=== PATIENT | male | born 1995 | race African-American/Black ===

== ENCOUNTER 2017-05-08 07:35 | Emergency (ER) | payer SELFPAY ==
[~2017-05-08] VITALS: Ht 172.7 cm; Wt 77.0 kg
[2017-05-08] MEDS ORDERED: BACITRACIN ZINC OINT UDPKT TOP ONE (08:15)
[2017-05-08] MEDS ORDERED: LIDOCAINE HCL 1% 20ML VIAL (Pyxis) INJ MC ONE (08:15)
[2017-05-08] MEDS ORDERED: TETANUS, DIPHTHERIA, PERTUSSIS VAC/PF 0.5ML (>7YR OLD) IM ONE (08:15)
[2017-05-08] MEDS ORDERED: IBUPROFEN 600MG TABLET PO ONE (10:30)
[2017-05-08 12:16] VITALS: BP 110/72
== END 2017-05-08 12:17 | disposition home or self-care (01) ==
LOC: ER 07:35
DX: S81.011A Laceration without foreign body, right knee, initial encounter (principal); J45.909 Unspecified asthma, uncomplicated; V89.2XXA Person injured in unspecified motor-vehicle accident, traffic, initial encounter; Y93.89 Activity, other specified; Y92.89 Other specified places as the place of occurrence of the external cause; Y99.8 Other external cause status
CPT/HCPCS: 12001; 73562; 90471; 90715; 99284; J3490; X7700; Z7610